=== PATIENT | female | born 1965 | race Hispanic/Latino ===

== ENCOUNTER 2020-05-27 08:12 | Emergency (ER) | payer SELFPAY ==
[2020-05-27 08:49] LABS: #Basophils 0.1 thou/uL (0.0-0.2); #Eosinphils 0.4 thou/uL (0.0-0.7); #Lymphocytes 2.1 thou/uL (1.20-3.40); #Monocytes 0.4 thou/uL (0.11-0.59); %Eosinophils 4.5 % (0.0-10.0); %Lymphocytes 26.5 % (21.0-51.0); %Monocytes 5.5 % (0.0-10.0); %Neutrophils 62.5 % (42.0-75.0); Hemoglobin 13.1 g/dL (12.0-16.0); Mean Corpuscular HGB CONC 33.9 g/dL (32.0-36.0); Mean Corpuscular Hemoglobin 30.5 pg (27.0-31.0); Mean Corpuscular Volume 89.9 fL (78.0-98.0); Mean Platelet Volume 7.5 fL (7.4-10.4); Platelet Count 208 thou/uL (130-400); RBC Distribution Width 11.7 % (11.5-14.5); Red Blood Cell (RBC) Count 4.31 mill/uL (4.20-5.40); White Blood Cell (WBC) Count 7.9 thou/uL (4.8-10.8)
[2020-05-27 09:08] LABS: ALT (SGPT) 16 U/L (8-55); AST (SGOT) 16 U/L (5-34); Albumin 4.1 g/dL (3.5-5.0); Alkaline Phosphatase 89 U/L (40-110); Anion Gap 14 mmol/L (10-20); BUN (Urea Nitrogen) 17 mg/dL (9.8-20.1); Bilirubin, Total 0.3 mg/dL (0.2-1.2); Calc. Creatinine Clearance 0 mL/min (70-130); Calcium 8.5 mg/dL (7.8-10.44); Carbon Dioxide 22 mmol/L (22-29); Chloride 107 mmol/L (98-107); Estimated GFR-MDRD 73; Globulin 3.2 g/dL (2.4-3.5); Glucose 126 mg/dL (70-105); Lipase 19 U/L (8-78); Potassium 3.5 mmol/L (3.5-5.1); Protein, Total 7.3 g/dL (6.0-8.3); Sodium 139 mmol/L (136-145)
--- NOTE | 2020-05-27 09:20 | CT ---
CT ABDOMEN AND PELVIS WITH IV CONTRAST 05/27/2020 CLINICAL INFORMATION: Abdominal pain COMPARISON: 12/01/2015 Technique: Multiple contiguous axial CT images are obtained through the abdomen and pelvis with IV contrast. Cor onal reformatted images are provided. FINDINGS: Lower Chest: Minimal dependent bibasilar atelectasis. Vessels: Abdominal aorta is normal in caliber. Incidental note is made of a circumaortic left renal v ein. Abdomen: Portal vein:Patent Gallbladder: Within normal limits for CT imaging. Liver: As noted on the prior exam, there are hypodense cystic lesions scattered within the liver. Lar gest fluid attenuation lesion in the lateral segment left hepatic lobe measures 2.6 cm and previously measured 2.1 cm. Second largest fluid attenuation lesion is seen in the posterior segment inferior right hepatic lobe measuring 1.5 cm, and this previously measured 1.2 cm. Additional lesions are too small to characterize. Although lesions were present on prior exam, some of the lesio ns do demonstrate mild interval enlargement. Again findings statistically likely represent multiple hepatic cysts. Spleen: within normal limits. Pancreas: within normal limits. Adrenals: 1.2 cm hypodense nodule left adrenal gland. Follow-up CT without IV contrast is recommended . Kidneys: Subcentimeter too small to characterize hypodense lesion midportion left kidney. Kidneys oth erwise have a normal CT appearance. Bowel: Normal caliber. Suggestion of small hiatal hernia. Appendix: The appendix is visualized and normal in caliber. Peritoneum: No ascites or free air; no fluid collection. Mesentery and Retroperitoneum: No enlarged mesenteric or retroperitoneal lymph nodes. Abdominal Wall: within normal limits. Pelvis: Reproductive Organs: Evidence of hysterectomy. Bladder: within normal limits. Bones: Fusion of the T8 and T9 vertebral bodies is seen. No suspicious lytic or sclerotic osseous les ions are seen to IMPRESSION: 1. Left adrenal nodule measuring 1.2 cm unchanged compared to study in 2016. This suggests a benign f inding, but CT abdomen without IV contrast is suggested for further evaluation. 2. Slight interval enlargement of scattered hypodense cystic lesions in each lobe of the liver. Large st lesions in the left hepatic lobe and posterior segment right hepatic lobe do demonstrate fluid attenuation. Findings are favored to represent multiple hepatic cysts. Cystic metastatic lesions are thought less likely unless patient has history of neoplastic process. 3. Hysterectomy. 4. No acute findings in the abdomen or pelvis.
[2020-05-27 09:27] LABS: Bilirubin Negative (Negative); Blood, Urine Negative (Negative); Clarity Clear (Clear); Glucose, Urine (Dipstick) Normal (Negative); Ketone, Urine Negative (Negative); Leukocyte Negative Leu/uL (Negative); Nitrite Negative (Negative); Protein, Urine (Dipstick) Negative (Neg-Trace); Specific Gravity, Urine 1.027 (1.002-1.036); Urobilinogen Normal mg/dL (Less than 2); pH, Urine 6.5 (5.0-9.0)
[2020-05-27] MEDS ORDERED: Iopamidol-370 76% 500 ML 1 ML ONE (10:35)
== END 2020-05-27 09:50 | disposition home or self-care (01) ==
LOC: ERS 08:12
DX: R10.13 Epigastric pain (principal); R11.0 Nausea
CPT/HCPCS: 36415; 74177; 80053; 81003; 83690; 85025; 93005; Q9967

== ENCOUNTER 2022-02-01 21:36 | Emergency (ER) | payer OTHER, SELFPAY ==
[2022-02-01 22:13] LABS: #Basophils 0.1 thou/uL (0.0-0.2); #Eosinphils 0.5 thou/uL (0.0-0.7); #Lymphocytes 2.5 thou/uL (1.20-3.40); #Monocytes 0.5 thou/uL (0.11-0.59); #Neutrophils 3.6 thou/uL (1.40-6.50); %Basophils 1.2 % (0.0-1.0); %Eosinophils 6.7 % (0.0-10.0); %Lymphocytes 34.6 % (21.0-51.0); %Monocytes 7.5 % (0.0-10.0); %Neutrophils 50.1 % (42.0-75.0); Hemoglobin 13.2 g/dL (12.0-16.0); Mean Corpuscular HGB CONC 33.1 g/dL (32.0-36.0); Mean Corpuscular Hemoglobin 30.7 pg (27.0-31.0); Mean Platelet Volume 7.3 fL (7.4-10.4); Platelet Count 215 thou/uL (130-400); White Blood Cell (WBC) Count 7.3 thou/uL (4.8-10.8)
[2022-02-01 22:14] LABS: Bilirubin Negative (Negative); Blood, Urine Negative (Negative); Clarity Clear (Clear); Glucose, Urine (Dipstick) Normal (Negative); Ketone, Urine Negative (Negative); Leukocyte Negative Leu/uL (Negative); Nitrite Negative (Negative); Protein, Urine (Dipstick) Negative (Neg-Trace); Specific Gravity, Urine 1.001 (1.002-1.036); Urobilinogen Normal mg/dL (Less than 2); pH, Urine 6.5 (5.0-9.0)
[2022-02-01 22:33] LABS: Pregs Control Background? CLEAR/WHITE (CLR/WHITE); Pregs Control Bar Appear? YES (CONTROL BAR)
[2022-02-01 22:37] LABS: BHCG - Serum Negative (NEGATIVE)
[2022-02-01 22:38] LABS: ALT (SGPT) 11 U/L (8-55); AST (SGOT) 19 U/L (5-34); Albumin 4.5 g/dL (3.5-5.0); Alkaline Phosphatase 99 U/L (40-110); Anion Gap 12 mmol/L (10-20); BUN (Urea Nitrogen) 14 mg/dL (9.8-20.1); Bilirubin, Total 0.3 mg/dL (0.2-1.2); Calc. Creatinine Clearance 0 mL/min (70-130); Calcium 9.3 mg/dL (7.8-10.44); Carbon Dioxide 25 mmol/L (22-29); Chloride 106 mmol/L (98-107); Globulin 3.3 g/dL (2.4-3.5); Glucose 94 mg/dL (70-105); Potassium 3.7 mmol/L (3.5-5.1); Protein, Total 7.8 g/dL (6.0-8.3); Sodium 139 mmol/L (136-145)
== END 2022-02-01 23:26 | disposition home or self-care (01) ==
LOC: ERS 21:36
DX: I10 Essential (primary) hypertension (principal)
CPT/HCPCS: 36415; 70450; 80053; 81003; 84484; 84703; 85025; 93005